=== PATIENT | female | born 1985 | race Two or more races ===

== ENCOUNTER 2024-04-18 13:33 | Emergency (ER) | payer MEDICAID, SELFPAY ==
[2024-04-18 13:50] VITALS: BP 158/96; PULSE 86; RESP 18; TEMP 36.8; O2SAT 98
--- NOTE | 2024-04-18 13:59 | XR_ITS ---
Examination: CT brain head without contrast. 2-D sagittal coronal reconstructions Date and time of exam:April 18, 2024 1411 hrs. Indications: Generalized headaches with altered mental status today CTDI: vol (mGy):47.6 DLP: (mGycm):997 Technique: Multiple CT axial sections of the brain have been obtained, 5 mm slice thickness. Contrast has not been administered. 2-D sagittal, coronal reconstructions have been obtained Low dose protocols were performed. One or more of the following dose reduction techniques were used; automated exposure control, adjustment of the mA and/or KV according to patient size, use of iterative reconstruction technique. Findings: No significant ventricular enlargement. Axial image 33 show subtle low density in the left temporal lobe Intra-axial or extra-axial hemorrhage density is not seen. No mass effect or midline shift Basal cisterns are not remarkable. Fourth ventricle is midline. Cranial vault intact. Impression: Negative for acute hemorrhage, mass effect or midline shift Axial image 33 shows subtle low density in the left temporal lobe, consider early acute infarct Consider short-term follow-up CT brain scan or MRI of brain as clinically warranted
--- NOTE | 2024-04-18 13:59 | PD.EDRME ---
Rapid Medical Screening Exam RME Arrival date/time: 04/18/24 13:33 38-year-old female presents to the emergency department complains of headache and confusion ongoing for last couple of days Chief Complaint: Headache Vital signs: Vital Signs Temperature 98.3 F 04/18/24 13:50 Pulse Rate 86 04/18/24 13:50 Respiratory Rate 18 04/18/24 13:50 Blood Pressure 158/96 H 04/18/24 13:50 Pulse Oximetry (%) 98 04/18/24 13:50 Oxygen Delivery Method Room Air 04/18/24 13:50
[2024-04-18 14:17] LABS: Collection Type, Urine Clean Catch
[2024-04-18 14:22] LABS: Bilirubin,Urine Negative (Negative); Blood,Urine 1+ (Negative); Clarity,Urine Clear (Clear/Hazy); Color,Urine Lt-Yellow (Lt Yel-Yel); Culture Indicated,Urine Not Indicated; Glucose, Urine Negative (Negative); Ketones,Urine Negative (Negative); Leukocyte Esterase,Urine Negative (Negative); Nitrite,Urine Negative (Negative); PH,Urine 6.5 (5.0-7.0); Protein,Urine Negative (Neg - Trace); RBC,Urine 2 /hpf (0-3); Squamous Epithelial Cell,Urine 3 /hpf (0-5); Urobilinogen,Urine Negative mg/dL (0.0-1.0); WBC,Urine < 1 /hpf (0-5)
[2024-04-18 14:26] LABS: HCG Qualitative,Urine Negative
[2024-04-18 14:40] LABS: Amphetamine/Methamp Scrn,U Negative (Negative); Barbiturate Screen,Urine Negative (Negative); Benzodiazepines Screen,Urine Negative (Negative); Benzoylecgonine Screen, Ur Negative (Negative); Fentanyl Screen,Urine Negative (Negative); Opiate Screen,Urine Negative (Negative); THC Screen,Urine Negative (Negative)
[2024-04-18 14:48] LABS: Basophils # (Auto) 0.1 Thou/mm3 (0.0-0.2); Basophils % (Auto) 0 % (0-2.5); Eosinophils # (Auto) 0.1 Thou/mm3 (0.0-0.5); Eosinophils % (Auto) 1 % (0-10); Hematocrit 38.7 % (36.0-46.0); Hemoglobin 12.6 g/dL (12.0-16.0); Immature Granulocytes % (Auto) 0 % (0-0); Immature Granulocytes Auto 0.05 Thou/mm3 (0.00-0.00); Lymphocytes # (Auto) 2.4 Thou/mm3 (1.0-4.8); Lymphocytes % (Auto) 16 % (10-50); Mean Corpuscular HGB Conc 32.6 g/dl (31.0-37.0); Mean Corpuscular Hemoglobin 28.1 pg (25.0-35.0); Mean Corpuscular Volume 86 fL (80-100); Monocytes # (Auto) 0.8 Thou/mm3 (0.0-0.8); Monocytes % (Auto) 5 % (0-12); Neutrophils # (Auto) 11.5 Thou/mm3 (1.8-7.7); Neutrophils % (Auto) 77 % (37-80); Nucleated Red Blood Cell % 0 /100 WBC (0); Platelet Count 422 Thou/mm3 (140-440); RDW Standard Deviation 42.7 fL (36.4-46.3); Red Blood Count 4.49 Miln/mm3 (4.00-5.20); White Blood Count 14.9 Thou/mm3 (3.6-11.0)
[2024-04-18 15:05] LABS: Alanine Aminotransferase 14 U/L (10-49); Albumin, Serum 4.5 gm/dL (3.5-5.0); Albumin/Globulin Ratio 1.5 (1.2-2.2); Alkaline Phosphatase 104 U/L (46-116); Anion Gap 8 (7-16); Aspartate Amino Transferase 14 U/L (0-34); BUN/Creatinine Ratio 12 Ratio (12-20); Bilirubin,Total 0.2 mg/dL (0.3-1.2); Blood Urea Nitrogen 7 mg/dL (9-23); Calcium 9.7 mg/dL (8.3-10.6); Calcium (Corrected) 9.7 mg/dL (8.5-10.1); Carbon Dioxide 28.7 mMol/L (20.0-31.0); Chloride 99 mMol/L (98-107); Creatinine (Component) 0.6 mg/dL (0.6-1.3); Globulin 3.1 gm/dL (2.3-3.5); Glucose 88 mg/dL (74-106); Osmolality,Calculated 268 (275-295); Potassium 3.3 mMol/L (3.4-5.1); Sodium 136 mMol/L (136-145); Total Protein 7.6 gm/dL (5.7-8.2); eGFR > 60 See Note
--- NOTE | 2024-04-18 15:31 | EDNOTE_ITS ---
<Statement entered by Batsheva Sears MD - 04/18/24 16:21> As co-signing physician, I was present and available for consult prn. I concur with the plan and care as documented by the midlevel provider. ED General RME/HPI General Chief complaint: Headache Stated complaint: HEADACHE, CAN'T CONCENTRATE, FACE FEELS SWOLLEN Time Seen by Provider: 04/18/24 15:22 Arrival date/time: 04/18/24 13:33 CC: Headache HPI ongoing for the past 2 days not relieved with typical OTC medications including ibuprofen Tylenol. The patient denies any blurred vision seeing spots nausea vomiting or diarrhea. RME / HPI RME / HPI narrative: 04/18/24 13:33 38-year-old female presents to the emergency department complains of headache and confusion ongoing for last couple of days Related Data Previous Rx's ?Medication ?Instructions ?Recorded naproxen 500 mg tablet (Naprosyn) 500 mg PO BID #30 tabs 05/17/22 lfqfyhb-kpiurmhqxtygd-dxqvzgad 250 1 tab PO Q6H PRN headache #20 tabs 07/02/22 mg-250 mg-65 mg tablet (Excedrin Migraine) cyclobenzaprine 10 mg tablet 10 mg PO HS #14 tabs 04/18/24 meloxicam 7.5 mg tablet 7.5 mg PO QDAY #10 tabs 04/18/24 Allergies Allergy/AdvReac Type Severity Reaction Status Date / Time No Known Allergies Allergy Verified 12/21/23 13:48 Review of Systems Review of Systems Narrative Review of Systems: GEN: No fever, no chills, no weight loss EYES: No discharge, no visual changes, no pain HEENT: No ear pain, no congestion, no sore throat PULM: No shortness of breath, no cough, no congestion CV: No chest pain, no dyspnea on exertion, no palpitations GI: No nausea, no vomiting, no diarrhea, no pain, no constipation : No frequency, no urgency, no dysuria MUSC/SKEL: No joint pain, no back pain SKIN: No rash PSYCH: No hallucinations, no depression HEME/LYMPH: No easy bleeding or bruising tendencies NEURO: No weakness, no headache Past Medical History Social History SMOKING STATUS: Never smoker ED Exam Narrative Physical exam: [General: Obese not in in any acute distress Head normocephalic tenderness to palpation of the base of the skull and in the cervical paraspinal muscles. HEENT: Eyes: Pupils are PERRLA EOMs are intact pupils at 4 mm and reactive, nose no rhinorrhea mouth pink moist membranes uvula is midline, swallow symmetrical. All other subsystems of HEENT are within acceptable limits Neck is supple, no nuchal rigidity, full range of motion flexion-extension and retained chin, mild cervical paraspinal tenderness with palpation. Chest equal chest rise nontender to palpation Respiratory: Clear to auscultation no wheezes crackles or rubs CV: Rate rhythm is regular no murmurs rubs or clicks Abdomen is distended secondary to body habitus soft nontender no masses positive bowel sounds all 4 quadrants Back: No CVA tenderness no spinous process tenderness from cervical spine thoracic and lumbar spine Skin: Intact no petechiae rash induration ulceration or crepitus Extremities: Moving all extremity against resistance cap refill less than 2 seconds neurosensory intact Neuro: Awake alert oriented x3 Glascow coma 15 no focal deficits] Course Quality Measures none Orders Category Date Time Status CT head/brain wo con Stat Exams 04/18/24 13:59 Taken CBC Stat Lab 04/18/24 14:25 Completed Comprehensive Metabolic Panel Stat Lab 04/18/24 14:25 Completed Drug Screen,Urine Stat Lab 04/18/24 14:04 Completed HCG Qualitative,Urine Stat Lab 04/18/24 14:04 Completed UA, C/S IF [Urinalysis, C/S if Indicated] Stat Lab 04/18/24 14:04 Completed Vital Signs Vital signs: Vital Signs Temperature 98.3 F 04/18/24 13:50 Pulse Rate 86 04/18/24 13:50 Respiratory Rate 18 04/18/24 13:50 Blood Pressure 158/96 H 04/18/24 13:50 Pulse Oximetry (%) 98 04/18/24 13:50 Oxygen Delivery Method Room Air 04/18/24 13:50 [facility] Patient data External records reviewed:: [facility] previous records Clinical information provided by:: patient Social determinants that could affect healthcare access:: none Patient has the following chronic illnesses:: Obesity How is presenting disease/condition affected by chronic disease/condition?: e xacerbated by Evaluation data The following diagnostics were reviewed and interpreted by me:: lab results and radiology exam(s) Lab and/or radiology exams considered but not ordered:: CT head is interpreted by me read by radiology as negative for any acute finding CBC shows a mild leukocytosis, no anemia thrombocytopenia CMP shows no acute electrolyte imbalances renal impairment transaminitis or T. bili elevation Urine is negative for any acute finding Interpretation Summary: Upon discussion with the patient the findings the patient continue asked multiple questions including she is losing hair and out why her face is puffy in the mornings. At this time with reproducing the pain in the base of the neck and the scalp in the occipital region I highly suspect this is a tension headache. Patient can follow-up with her primary care doctor of all the other minor findings that are not life-threatening. It was explained to the patient multiple times that in the ER we focused on life-threatening conditions and the rest can be followed up with her PCP. Patient will be given muscle relaxers and pain medication to follow-up. Medications Medications considered but not ordered:: None Medication administrations:: None Consultations Consultation(s) initiated? (list below): No Diagnosis Differential Diagnosis ED Complaint MDM: Tension headache complex migraine cluster headache Most likely diagnosis given after review of the tests above:: Tension headache Admission Indicated Admission indicated?: not indicated Explain why admission is indicated or not indicated:: Stable for outpatient follow-up Admission Request Was there a request for admission?: No Disposition Plan Disposition Plan: Discharge Discharge Attestation Discharge Attestation: The patient and all family members were given an opportunity to ask questions and understood the discharge instructions. Discharge instructions specifically effects, indications for sooner follow up or return to the emergency department, and the expected course of current diagnosis. Patient condition: Stable Medical Decision Making Differential Diagnosis Differential Diagnosis: Tension headache complex migraine cluster headache Lab Data 04/18/24 14:25 04/18/24 14:25 Labs: Lab Results 04/18/24 04/18/24 Range/Units 14:04 14:25 WBC 14.9 H (3.6-11.0) Thou/mm3 RBC 4.49 (4.00-5.20) Miln/mm3 Hgb 12.6 (12.0-16.0) g/dL Hct 38.7 (36.0-46.0) % MCV 86 (80-100) fL MCH 28.1 (25.0-35.0) pg MCHC 32.6 (31.0-37.0) g/dl RDW Std Deviation 42.7 (36.4-46.3) fL Plt Count 422 (140-440) Thou/mm3 Neut % (Auto) 77 (37-80) % Lymph % (Auto) 16 (10-50) % Barron % (Auto) 5 (0-12) % Eos % (Auto) 1 (0-10) % Baso % (Auto) 0 (0-2.5) % Neut # (Auto) 11.5 H (1.8-7.7) Thou/mm3 Lymph # (Auto) 2.4 (1.0-4.8) Thou/mm3 Barron # (Auto) 0.8 (0.0-0.8) Thou/mm3 Eos # (Auto) 0.1 (0.0-0.5) Thou/mm3 Baso # (Auto) 0.1 (0.0-0.2) Thou/mm3 Immature Gran # (Auto) 0.05 H (0.00-0.00) Thou/mm3 Absolute Nucleated RBC 0.00 (0.00-0.00) Thou/mm3 Immature Gran % 0 (0-0) % Nucleated RBC % 0 (0) /100 WBC Sodium 136 (136-145) mMol/L Potassium 3.3 L (3.4-5.1) mMol/L Chloride 99 (98-107) mMol/L Carbon Dioxide 28.7 (20.0-31.0) mMol/L Anion Gap 8 (7-16) BUN 7 L (9-23) mg/dL Creatinine 0.6 (0.6-1.3) mg/dL Estim Creat Clear Calc Not Performed. eGFR > 60 (60 - ) See Note BUN/Creatinine Ratio 12 (12-20) Ratio Glucose 88 (74-106) mg/dL Calculated Osmolality 268 L (275-295) Calcium 9.7 (8.3-10.6) mg/dL Corrected Calcium 9.7 (8.5-10.1) mg/dL Total Bilirubin 0.2 L (0.3-1.2) mg/dL AST 14 (0-34) U/L ALT 14 (10-49) U/L Alkaline Phosphatase 104 (46-116) U/L Total Protein 7.6 (5.7-8.2) gm/dL Albumin 4.5 (3.5-5.0) gm/dL Globulin 3.1 (2.3-3.5) gm/dL Albumin/Globulin Ratio 1.5 (1.2-2.2) Ur Collection Type Clean Catch Urine Color Lt-Yellow (Lt Yel-Yel) Urine Clarity Clear (Clear/Hazy) Urine pH 6.5 (5.0-7.0) Ur Specific Toney 1.010 (1.001-1.035) Urine Protein Negative (Neg - Trace) Urine Glucose (UA) Negative (Negative) Urine Ketones Negative (Negative) Urine Blood 1+ A (Negative) Urine Nitrite Negative (Negative) Urine Bilirubin Negative (Negative) Urine Urobilinogen (Auto) Negative (0.0-1.0) mg/dL Ur Leukocyte Esterase Negative (Negative) Urine RBC 2 (0-3) /hpf Urine WBC < 1 (0-5) /hpf Ur Squamous Epith Cells 3 (0-5) /hpf Urine Bacteria None (None) Ur Culture Indicated? Not Indicated Urine HCG, Qual Negative Urine Opiates Screen Negative (Negative) Urine Fentanyl Screen Negative (Negative) Ur Barbiturates Screen Negative (Negative) U Amphetamin/Meth Scrn Negative (Negative) U Benzodiazepines Scrn Negative (Negative) U Cocaine Metab Screen Negative (Negative) U Marijuana (THC) Screen Negative (Negative) Discharge Plan Plan Patient Disposition: HOME (Self Care) Patient condition on transfer: Stable Prescriptions/Referrals Prescriptions/Med Rec: New meloxicam 7.5 mg tablet 7.5 mg PO QDAY Qty: 10 0RF cyclobenzaprine 10 mg tablet 10 mg PO HS Qty: 14 0RF No Action naproxen [Naprosyn] 500 mg tablet 500 mg PO BID Qty: 30 0RF Excedrin Migraine 250-250-65 mg tablet 1 tab PO Q6H PRN (Reason: headache) Qty: 20 0RF Referrals: Darrick Villarreal [Primary Care Provider] - In 1 week Problem List Clinical Impression: Tension headache Patient/Caregiver Discharge Instructions Education Materials: ED Headache, Tension Additional Instructions: Take the medication as prescribed if there is worsening of symptoms follow-up with your primary care provider return the emergency room for reevaluation. Print Language: Welsh Stand Alone Forms: Dinah Award Info., Patient Portal Info Letter, Work/School Release PA/GLYCERIN SUPERVISOR Supervising Physician PA/GLYCERIN SUPERVISOR Supervising Physician: Marcio Gutierrez ENP
[2024-04-18] MEDS: KETOROLAC INJ 60 MG/2 ML VIAL 30 MG IM (15:49)
== END 2024-04-18 15:55 | disposition home or self-care (01) ==
PROVIDERS: Nurse Practitioner Primary Care; Emergency Provider Emergency Medicine; PCP Physician Assistant
DX: G44.209 Tension-type headache, unspecified, not intractable (principal)
CPT/HCPCS: 36415; 70450; 80053; 80307; 81001; 81025; 85025; 96372; 99284; J1885

== ENCOUNTER → 2024-05-21 | Outpatient (CLI) | payer MEDICAID, SELFPAY ==
--- NOTE | 2024-05-21 10:00 | XR_ITS ---
Examination: Pelvic ultrasound, transabdominal, complete Technique: Transabdominal ultrasound of the pelvis performed using grayscale imaging Date and time of exam: May 21, 2024 1016 hours INDICATIONS: Irregular heavy menses 3 months FINDINGS: Uterus 12.9 x 3.7 x 2.8 cm Mild fluid in the lower uterine segment Endometrial stripe 0.4 cm No uterine mass or intrauterine gestation Right ovary 3.9 x 2.1 x 3.2 cm arterial flow, 23 x 24 mm cyst Left ovary 3.5 x 1.5 x 2.6 cm arterial flow, 10 mm follicular cyst IMPRESSION: No uterine mass or intrauterine gestation Right ovarian simple cyst 23 x 20 x 24 mm
--- NOTE | 2024-05-21 10:00 | XR_ITS ---
Examination: Transvaginal ultrasound of the pelvis, complete Technique: Transvaginal sonographic images pelvis performed using magaña scale imaging Exam date and time: May 21, 2024 1035 hours INDICATIONS: Irregular heavy menses 3 months FINDINGS: Uterus 10.4 x 4.0 x 4.7 cm No uterine mass or intrauterine gestation Endometrial stripe 11 mm Right ovary 3.4 x 2.3 x 2.9 cm arterial flow, 18 x 17 mm cyst Left ovary obscured by bowel gas IMPRESSION: No uterine mass or intrauterine gestation.
== END | disposition home or self-care (01) ==
PROVIDERS: PCP Physician Assistant; Referring Provider Physician Assistant; Visit Provider Physician Assistant
DX: N83.291 Other ovarian cyst, right side (principal)
CPT/HCPCS: 76830; 76856

== ENCOUNTER 2024-05-27 12:05 | Inpatient (IN) | payer MEDICAID, SELFPAY ==
[2024-05-27] VITALS (14 sets, daily range): BP systolic 90–122; BP diastolic 48–89; PULSE 97–155; RESP 16–28; TEMP 36.2–38.9; O2SAT 2–100; BMI 35.4; BMI 38.5
--- NOTE | 2024-05-27 12:21 | XR_ITS ---
Examination: AP chest single view Technique one AP portable semiupright chest single view Exam date and time: May 27, 2024 1231 hrs. Indications: Chest pain coughing beginning today. Findings: Early bibasilar pneumonia Mild enlargement cardiac contour Reduced inspiratory effort Impression: Early bibasilar pneumonia, more prominent left base
--- NOTE | 2024-05-27 12:21 | EKG_ITS ---
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
--- NOTE | 2024-05-27 12:26 | PD.EDADULT ---
ED General RME/HPI General Chief complaint: Abdominal Pain Stated complaint: UPPER ABD PAIN Time Seen by Provider: 05/27/24 12:14 Arrival date/time: 05/27/24 12:05 RME / HPI RME / HPI narrative: 38-year-old female with a history of section who presents with fevers and epigastric pain since mid last night. She reports being of her normal state of health where in fact she had a large meal last night which she was able to finish. This progressed to significant epigastric pain, some nausea and vomiting. She had an episode of loose stool this morning. No other member of her family had the same meal last night. She is somewhat lethargic and does not offer a full or complete history. EMS notes that family members and activated them because they had a difficult time getting her off of the floor. On arrival with support she was able to ambulate herself to the stretcher. Related Data Previous Rx's ?Medication ?Instructions ?Recorded naproxen 500 mg tablet (Naprosyn) 500 mg PO BID #30 tabs 05/17/22 [id number] 250 1 tab PO Q6H PRN headache #20 tabs 07/02/22 mg-250 mg-65 mg tablet (Excedrin Migraine) cyclobenzaprine 10 mg tablet 10 mg PO HS #14 tabs 04/18/24 meloxicam 7.5 mg tablet 7.5 mg PO QDAY #10 tabs 04/18/24 Allergies Allergy/AdvReac Type Severity Reaction Status Date / Time No Known Allergies Allergy Verified 12/21/23 13:48 Review of Systems Review of Systems Systems Reviewed: All systems reviewed, normal except as documented ED Exam Narrative Physical exam: GENERAL APPEARANCE: AxOx4, lethargic, quite ill-appearing, in moderate distress HEENT: NC, AT. MMM. EOMI, clear conjunctiva, oropharynx clear. NECK: Supple without lymphadenopathy. No stiffness or restricted ROM. HEART: Normal rate and regular rhythm, normal S1/S1, no m/r/g LUNGS: CTAB, moving air well. No crackles or wheezes are heard. ABDOMEN: Soft, diffuse tenderness, nondistended with good bowel sounds heard. BACK: No midline C/T/L spine pain or deformity, No CVAT, no obvious deformity. EXTREMITIES: Without cyanosis, clubbing or edema. MUSCULOSKELETAL: FROM of all major joints, no chest tenderness NEUROLOGICAL: Grossly nonfocal. Alert and oriented, moving all 4 extremities. CN not formally tested but appear grossly intact. Observed to ambulate with normal gait. Skin: Warm and dry without any rash. Course Quality Measures Current suspected stage: septic shock (LA >4 and/or hypotension) Sepsis reassessment completed at (date): 05/27/24 Sepsis reassessment completed at (time): 15:50 Possible source: GI tract/intra-abdominal Blood cultures ordered: yes Antibiotic ordered: Yes Pertinent labs: 05/27/24 05/27/24 12:37 16:22 Lactic Acid 3.1 H mMol/L 4.3 H* mMol/L (0.4-2.0) (0.4-2.0) Procalcitonin 7.87 H ng/ml (0.0-0.49) sepsis and none Orders Category Date Time Status CT Screening NOW Care 05/27/24 13:42 Active EKG (ED ONLY) *Do not use* NOW Care 05/27/24 12:21 Completed Consult to General Surgery Stat Cons 05/27/24 16:[address] abd pel w con SEPSIS TERESA Stat Exams 05/27/24 13:42 Completed EKG (ED Only) Stat Exams 05/27/24 12:21 Draft US gall bladder Stat Exams 05/27/24 13:42 Completed XR chest 1V Stat Exams 05/27/24 12:21 Completed Blood Culture (Lab) Stat Lab 05/27/24 12:44 Received CBC Stat Lab 05/27/24 12:37 Completed CMP [Comprehensive Metabolic Panel] Stat Lab 05/27/24 12:37 Completed HCG Qualitative,Urine Stat Lab 05/27/24 14:12 Completed Lactate (Lactic Acid) Stat Lab 05/27/24 12:37 Completed Lactic Acid, 3 HR Stat Lab 05/27/24 16:22 Completed Lipase Stat Lab 05/27/24 12:37 Completed Partial Thromboplastin Time Stat Lab 05/27/24 12:37 Completed Procalcitonin Stat Lab 05/27/24 12:37 Completed Prothrombin Time with INR Stat Lab 05/27/24 12:37 Completed Troponin I Stat Lab 05/27/24 12:37 Completed Urinalysis Stat Lab 05/27/24 14:12 Completed Acetaminophen Tab [Tylenol Tab] Med 05/27/24 13:43 Discontinued 650 mg PO X1 ONE Piper/Tazo 3.375 gm [Zosyn] Med 05/27/24 13:42 Discontinued 3.375 gm in 50 ml IV X1 Sodium Chloride 0.9% 1000 ml [Ns] 1,000 ml Med 05/27/24 12:20 Discontinued IV 999 mls/hr Sodium Chloride 0.9% 1000 ml [Ns] 1,000 ml Med 05/27/24 12:22 Discontinued IV 999 mls/hr Sodium Chloride 0.9% 1000 ml [Ns] 1,000 ml Med 05/27/24 16:27 Discontinued IV 999 mls/hr Reevaluation(s) Reevaluation #1: Patient continues to be tachycardic with normal blood pressure despite 2 L of fluids, will give 1/3 L of normal saline. Time: 16:30 Vital Signs Vital signs: Vital Signs Temperature 102.1 F H 05/27/24 12:11 Pulse Rate 145 H 05/27/24 12:11 Respiratory Rate 28 H 05/27/24 12:11 Blood Pressure 111/79 05/27/24 12:11 Pulse Oximetry (%) 100 05/27/24 12:11 Oxygen Delivery Method Nasal Cannula 05/27/24 12:11 Oxygen Flow Rate 2 05/27/24 12:11 SpO2 100% on 2 L nasal cannula, patient is not a MDM Patient data External records reviewed:: [facility] [place] previous records Clinical information provided by:: patient Social determinants that could affect healthcare access:: none Patient has the following chronic illnesses:: None How is presenting disease/condition affected by chronic disease/condition?: no chronic disease Evaluation data The following diagnostics were reviewed and interpreted by me:: lab results, radiology exam(s) and EKG tracing(s) Lab and/or radiology exams considered but not ordered:: None Interpretation Summary: As per narrative Medications Medications considered but not ordered:: None Medication administrations:: Medication Administration History Sodium Chloride (Ns) 1,000 mls @ 100 mls/hr IV .Q10H ESPERANZA Stop: 05/28/24 13:44 Discontinued Medications Acetaminophen (Acetaminophen 325 Mg Tablet) 650 mg PO X1 ONE Stop: 05/27/24 13:44 Last Admin: 05/27/24 14:41 Dose: 650 mg Documented By: XUAN Sodium Chloride (Ns) 1,000 mls @ 999 mls/hr IV .Q1H1M ONE Stop: 05/27/24 13:20 Last Infusion: 05/27/24 13:46 Dose: Infused Documented By: Admin: 05/27/24 12:45 Dose: 999 mls/hr Documented By: TM Sodium Chloride (Ns) 1,000 mls @ 999 mls/hr IV .Q1H1M ONE Stop: 05/27/24 13:22 Last Infusion: 05/27/24 13:46 Dose: Infused Documented By: Admin: 05/27/24 12:45 Dose: 999 mls/hr Documented By: TM Piperacillin/Tazobactam/Dextrose (Zosyn) 3.375 gm in 50 mls @ 100 mls/hr IV X1 ONE Stop: 05/27/24 14:11 Last Infusion: 05/27/24 15:11 Dose: Infused Documented By: Admin: 05/27/24 14:41 Dose: 100 mls/hr Documented By: TM Sodium Chloride (Ns) 1,000 mls @ 999 mls/hr IV .Q1H1M ONE Stop: 05/27/24 17:27 Last Admin: 05/27/24 16:35 Dose: 999 mls/hr Documented By: TM Above Consultations Consultation(s) initiated? (list below): No Diagnosis Differential Diagnosis ED Complaint MDM: Perforated viscus, peptic ulcer disease, pancreatitis, acute cholecystitis, Most likely diagnosis given after review of the tests above:: Severe sepsis, acute cholecystitis Admission Indicated Admission indicated?: indicated Explain why admission is indicated or not indicated:: As per narrative Admission Request Was there a request for admission?: Yes Admission Attestation Admission request attestation: Discussed case with [Dr Forbes] from surgery service regarding admission. Discussed patients ED course, exam findings, labs, and radiology results. The surgery [agrees] to accept the patient for admission. Disposition Plan Disposition Plan: Admit (To the operating room) Medical Decision Making MDM Narrative MDM Narrative: Ms. Larson presents to me by EMS quite ill contact tachycardic, febrile with diffuse abdominal pain. Although exam is not consistent with a surgical abdomen, her degree of illness is concerning for a perforated viscus. Laboratory testing was sent which is significant for a marked leukocytosis, elevated lactic acid and elevated procalcitonin concerning for a septic picture. This is consistent with a perforated viscus. Liver enzymes were within normal limits. Further testing including ultrasound and gallbladder were done to assess for the gallbladder given her predominant upper abdominal pain and CT to rule out perforation. Ultrasound and CT point a little bit more towards the gallbladder with acute cholecystitis. There is no perforation. However she continues to have a septic picture with an rising lactic acids despite IV fluids and antibiotics. Surgery was consulted with plan for the OR for exploration and likely cholecystectomy. Differential Diagnosis Differential Diagnosis: Perforated viscus, peptic ulcer disease, pancreatitis, acute cholecystitis, Lab Data 05/27/24 12:37 05/27/24 12:37 Labs: Lab Results 05/27/24 05/27/24 05/27/24 Range/Units 12:37 14:12 16:22 WBC 16.2 H (3.6-11.0) Thou/mm3 RBC 4.63 (4.00-5.20) Miln/mm3 Hgb 12.9 (12.0-16.0) g/dL Hct 39.7 (36.0-46.0) % MCV 86 (80-100) fL MCH 27.9 (25.0-35.0) pg MCHC 32.5 (31.0-37.0) g/dl RDW Std Deviation 44.4 (36.4-46.3) fL Plt Count 273 D (140-440) Thou/mm3 Neut % (Auto) 94 H (37-80) % Lymph % (Auto) 3 L (10-50) % [place] % (Auto) 2 (0-12) % Eos % (Auto) 0 (0-10) % Baso % (Auto) 0 (0-2.5) % Neut # (Auto) 15.2 H (1.8-7.7) Thou/mm3 Lymph # (Auto) 0.5 L (1.0-4.8) Thou/mm3 [place] # (Auto) 0.4 (0.0-0.8) Thou/mm3 Eos # (Auto) 0.0 (0.0-0.5) Thou/mm3 Baso # (Auto) 0.0 (0.0-0.2) Thou/mm3 Immature Gran # (Auto) 0.08 H (0.00-0.00) Thou/mm3 Absolute Nucleated RBC 0.00 (0.00-0.00) Thou/mm3 Immature Gran % 1 H (0-0) % Nucleated RBC % 0 (0) /100 WBC PT 11.1 (9.0-12.2) Seconds INR 1.0 (0.9-1.3) APTT 27.2 (22.0-36.0) Seconds Sodium 135 L (136-145) mMol/L Potassium 3.0 L (3.4-5.1) mMol/L Chloride 100 (98-107) mMol/L Carbon Dioxide 21.2 (20.0-31.0) mMol/L Anion Gap 14 (7-16) BUN 11 (9-23) mg/dL Creatinine 0.8 (0.6-1.3) mg/dL Estim Creat Clear Calc 100.9 (>60) mL/min eGFR > 60 (60 - ) See Note BUN/Creatinine Ratio 14 (12-20) Ratio Glucose 116 H (74-106) mg/dL Calculated Osmolality 270 L (275-295) Lactic Acid 3.1 H 4.3 H* (0.4-2.0) mMol/L Calcium 9.2 (8.3-10.6) mg/dL Corrected Calcium 9.2 (8.5-10.1) mg/dL Total Bilirubin 1.0 (0.3-1.2) mg/dL AST 66 H (0-34) U/L ALT 33 (10-49) U/L Alkaline Phosphatase 142 H (46-116) U/L Troponin I < 0.020 (0.0-0.045) ng/mL Total Protein 7.8 (5.7-8.2) gm/dL Albumin 4.3 (3.5-5.0) gm/dL Globulin 3.5 (2.3-3.5) gm/dL Albumin/Globulin Ratio 1.2 (1.2-2.2) Lipase 32 (12-53) U/L Procalcitonin 7.87 H (0.0-0.49) ng/ml Ur Collection Type Clean Catch Urine Color Lt-Yellow (Lt Yel-Yel) Urine Clarity Turbid A (Clear/Hazy) Urine pH 6.0 (5.0-7.0) Ur Specific [place] 1.011 (1.001-1.035) Urine Protein 1+ A (Neg - Trace) Urine Glucose (UA) Negative (Negative) Urine Ketones Trace (Negative) Urine Blood 2+ A (Negative) Urine Nitrite Negative (Negative) Urine Bilirubin Negative (Negative) Urine Urobilinogen (Auto) Negative (0.0-1.0) mg/dL Ur Leukocyte Esterase Positive (Negative) Urine RBC 11 H (0-3) /hpf Urine WBC 54 H (0-5) /hpf Ur Squamous Epith Cells 2 (0-5) /hpf Urine Bacteria Rare (None) Urine HCG, Qual Negative Critical Care Time Critical Care Time Critical Care Time: Yes Total Critical Care Time (min.): 40 Attestation: Excluding billable procedures for the rep response, analysis, management, deliberation with specialist, treatment, and documentation to vent the very possible risk of cardiovascular decompensation and/or . Discharge Plan Plan Patient Disposition: Other Care w/in Hosp ([facility]) Problem List Clinical Impression: Severe sepsis, Acute calculous cholecystitis
[2024-05-27] MEDS: SODIUM CHLORIDE 0.9% 1000 ML 1,000 ML 999 ML IV ×3 (12:45→16:35)
[2024-05-27 12:50] LABS: Lactate (Lactic Acid) 3.1 mMol/L (0.4-2.0)
--- NOTE | 2024-05-27 12:51 | PC.NURSE ---
PT ARRIVED VIA EMS FROM HOME. EMS WAS CALLED FOR EPIGASTRIC PAIN THAT BEGAN LAST NIGHT AFTER EATING OUT WITH FRIEND. PTS HAS N/V/D, LETHARGIC, AND FEVER. SEPSIS ALERT INITIATED
[2024-05-27 12:59] LABS: Basophils % (Auto) 0 % (0-2.5); Eosinophils % (Auto) 0 % (0-10); Hematocrit 39.7 % (36.0-46.0); Hemoglobin 12.9 g/dL (12.0-16.0); Immature Granulocytes % (Auto) 1 % (0-0); Immature Granulocytes Auto 0.08 Thou/mm3 (0.00-0.00); Lymphocytes # (Auto) 0.5 Thou/mm3 (1.0-4.8); Lymphocytes % (Auto) 3 % (10-50); Mean Corpuscular HGB Conc 32.5 g/dl (31.0-37.0); Mean Corpuscular Hemoglobin 27.9 pg (25.0-35.0); Mean Corpuscular Volume 86 fL (80-100); Monocytes # (Auto) 0.4 Thou/mm3 (0.0-0.8); Monocytes % (Auto) 2 % (0-12); Neutrophils # (Auto) 15.2 Thou/mm3 (1.8-7.7); Neutrophils % (Auto) 94 % (37-80); Nucleated Red Blood Cell % 0 /100 WBC (0); Platelet Count 273 Thou/mm3 (140-440); RDW Standard Deviation 44.4 fL (36.4-46.3); Red Blood Count 4.63 Miln/mm3 (4.00-5.20); White Blood Count 16.2 Thou/mm3 (3.6-11.0)
[2024-05-27 13:19] LABS: Partial Thromboplastin Time 27.2 Seconds (22.0-36.0); Prothrombin Time 11.1 Seconds (9.0-12.2)
[2024-05-27 13:26] LABS: Alanine Aminotransferase 33 U/L (10-49); Albumin, Serum 4.3 gm/dL (3.5-5.0); Albumin/Globulin Ratio 1.2 (1.2-2.2); Alkaline Phosphatase 142 U/L (46-116); Anion Gap 14 (7-16); Aspartate Amino Transferase 66 U/L (0-34); BUN/Creatinine Ratio 14 Ratio (12-20); Blood Urea Nitrogen 11 mg/dL (9-23); Calcium 9.2 mg/dL (8.3-10.6); Calcium (Corrected) 9.2 mg/dL (8.5-10.1); Carbon Dioxide 21.2 mMol/L (20.0-31.0); Chloride 100 mMol/L (98-107); Creatinine (Component) 0.8 mg/dL (0.6-1.3); Estimated Creatinine Clearance 100.9 mL/min (>60); Globulin 3.5 gm/dL (2.3-3.5); Glucose 116 mg/dL (74-106); Lipase 32 U/L (12-53); Osmolality,Calculated 270 (275-295); Procalcitonin 7.87 ng/ml (0.0-0.49); Sodium 135 mMol/L (136-145); Total Protein 7.8 gm/dL (5.7-8.2); Troponin I < 0.020 ng/mL (0.0-0.045); eGFR > 60 See Note
--- NOTE | 2024-05-27 13:42 | XR_ITS ---
Examination: Abdomen sonogram, Limited Date and time of exam: May 27, 2024 1520 hours INDICATIONS: Nausea vomiting fever abdominal pain today Technique: Real-time magaña scale transabdominal sonographic images of the upper abdomen obtained. Findings: Multiple gallstones Gallbladder wall 16 mm with edema Common bile duct 0.4 cm Pancreatic head 2.7 cm Liver 17.5 cm fatty infiltration no focal liver lesions Normal hepatopedal portal venous flow Patent IVC IMPRESSION: Acute calculous cholecystitis
--- NOTE | 2024-05-27 13:42 | XR_ITS ---
Examination: CT abdomen with intravenous contrast CT pelvis with intravenous contrast 2-D coronal reconstructions 2-D sagittal reconstructions Date and time of exam:May 27, 2024 at 1601 hours INDICATIONS: Sepsis alert, epigastric pain today. CTDI: vol (mGy) 14.5 DLP: (mGycm) 786 Technique: Multiple axial sections of the abdomen and pelvis have been obtained. 64 slice high-resolution scanner used. 3 mm axial sections have been obtained, post intravenous injection of 60 cc of Isovue 370 intravenous 2-D sagittal, coronal reconstructions obtained. Low dose protocols were performed. One or more of the following dose reduction techniques were used; automated exposure control, adjustment of the mA and/or KV according to patient size, use of iterative reconstruction technique. Findings: Atelectasis versus mild pneumonia right base No focal liver or splenic lesions Marked edema and thickening of the gallbladder wall, possible gallstones No renal or ureteral calculi Moderate colonic ileus No pericecal inflammatory change No diverticulitis Urinary bladder intact No abdominal pelvic abscess IMPRESSION: Atelectasis versus mild pneumonia right base Acute cholecystitis
[2024-05-27 14:25] LABS: Collection Type, Urine Clean Catch
[2024-05-27] MEDS: ACETAMINOPHEN 325 MG TABLET 650 MG PO (14:41)
[2024-05-27] MEDS: PIPER/TAZO 3.375 GM 3.375 GM/50 ML BAG IV (14:41)
[2024-05-27 14:57] LABS: Bacteria,Urine Rare; Bilirubin,Urine Negative (Negative); Blood,Urine 2+ (Negative); Clarity,Urine Turbid (Clear/Hazy); Color,Urine Lt-Yellow (Lt Yel-Yel); Glucose, Urine Negative (Negative); Ketones,Urine Trace (Negative); Leukocyte Esterase,Urine Positive (Negative); Nitrite,Urine Negative (Negative); Protein,Urine 1+ (Neg - Trace); RBC,Urine 11 /hpf (0-3); Specific Gravity,Urine 1.011 (1.001-1.035); Squamous Epithelial Cell,Urine 2 /hpf (0-5); Urobilinogen,Urine Negative mg/dL (0.0-1.0); WBC,Urine 54 /hpf (0-5)
[2024-05-27 14:59] LABS: HCG Qualitative,Urine Negative
[2024-05-27 15:55] LABS: Reflex Lactate? Y
[2024-05-27 16:46] LABS: Lactic Acid, 3 HR 4.3 mMol/L (0.4-2.0)
[2024-05-27] MEDS: SODIUM CHLORIDE 0.9% 1000 ML 1,000 ML 100 ML IV (18:00)
--- NOTE | 2024-05-27 18:37 | PD.SURHP ---
HPI Date of Admission 05/27/24 17:44 Chief Complaint Chief Complaint: Patient is admitted with a diagnosis of acute cholecystitis with stones HPI History of present illness revealed the patient was in her usual health until last night when she developed a severe pain over the abdomen mostly in the upper abdomen then radiating elsewhere. She has had some vomiting and had couple of loose stools. She denies having any gallbladder stones in the past. She denies fever or chills. The pain was so severe that when she presented in the emergency room she was tachycardic with a heart rate around 150. Emergency room doctors resuscitated her with IV fluids but still she was tachycardic around 120s and has a lactic acid of around 4. Workup revealed acute calculus cholecystitis with considerable edema over the gallbladder wall and therefore surgical consultation was obtained. Patient denies having any such pain in the past. Her past surgery consist of 3 sections in [place]. Past Medical History Past Medical History CARDIAC: Negative Cardiac Disorders RESPIRATORY: Negative Asthma GENITOURINARY: Negative Renal Disease ENDOCRINE: Negative Diabetes Mellitus Type 2 HEMATOLOGIC: Negative Sickle Cell Disease Social History SMOKING STATUS: Never smoker Meds Home Medications and Allergies Allergies Allergy/AdvReac Type Severity Reaction Status Date / Time No Known Allergies Allergy Verified 12/21/23 13:48 Exam Vital Signs Temp Pulse Resp BP Pulse Ox O2 Del Method O2 Flow Rate 100.2 F 133 H 16 117/89 H 99 Room Air 2 05/27/24 16:29 05/27/24 14:44 05/27/24 14:44 05/27/24 14:44 05/27/24 14:44 05/27/24 14:44 05/27/24 12:11 Narrative Exam Physical examination revealed a slightly obese female who is 5 feet 3 inches tall weighing 200 pounds with BMI of 35.4. Her vital signs revealed temperature of 100.2 pulse rate of 133 respiration of 16 BP was 117/89 Constitutional Constitutional: severe distress Routine Cardiovascular Exam Comments: Tachycardia with a heart rate of around 1 20-1 30 Routine Abdominal Exam Comments: Diffuse abdominal pain but more so in the right upper quadrant. Patient has diminished bowel sounds. Surgical scar in the lower abdomen from C-sections Routine Rectal Exam Comments: Deferred because of the pain Routine Exam Comments: Deferred Routine Extremities Exam Comments: Within normal limits Results Results: Laboratory Laboratory Narrative: Laboratory results show WBC of 16,000 with a shift to the left liver enzymes are not elevated. Her lactic acid is elevated to 4.3. Results: Imaging Imaging narrative: Ultrasound of the gallbladder showed acute calculus cholecystitis with considerable edema around the gallbladder. CT scan of the abdomen showed no abnormality other than gallbladder with large amounts of fluid collection Assessment & Plan Additional Assessment Additional comments: Impression: Acute calculus cholecystitis Obesity Plan Plan: I strongly feel that the patient's presentation is rather too acute for a simple cholecystitis. However I cannot find out any other source of infection or sepsis. It is not possible for her to get into sepsis with the gallbladder and 1 day unless she has cholangitis which is not proven here because of the normal bilirubin. She has a diffuse tenderness suggesting that she might of had a perforation in the abdomen. Since no other abnormalities found out I advised her to have laparoscopic or open cholecystectomy. I told the family that she may or may not get better and may require further workup after the surgery. The procedure of laparoscopic surgery was explained to her in detail and was mentioned that she may end up with exploratory laparotomy or open cholecystectomy. She is agreeable. She has been started on Zosyn on more than 2 L of fluid has been given and she will be taken to the OR tonight. Quality Measures Quality Measures sepsis Current suspected stage: septic shock (LA >4 and/or hypotension) Sepsis reassessment completed at (date): 05/27/24 Sepsis reassessment completed at (time): 17:00 Possible source: GI tract/intra-abdominal Blood cultures ordered: yes Antibiotic ordered: Yes and none
--- NOTE | 2024-05-27 18:47 | PC.NURSE ---
1800 WITNESSED CONSENT W/PROVIDER AND MOTOR COACH SUPERVISOR WAS USED NAME: Nikita #[id number]
--- NOTE | 2024-05-27 20:19 | PD.SUROPNT ---
Date of Procedure 05/27/24 Pre Op Diagnosis Acute calculus cholecystitis Post Op Diagnosis Same with extensive inflammation and edema I think Procedure Laparoscopic cholecystectomy Findings Patient is found to have extensive inflammation of the gallbladder with edema surrounding the entire gallbladder with multiple stones Procedure Description After endotracheal anesthesia was given the patient was placed in supine position and the abdomen was prepped with chloroprep solution and draped in a sterile manner. After time out was performed I injected a few cc of of half percent Marcaine with epinephrine below the umbilicus and I made an incision for about 3 cm in length. The fascia was cleaned and Veress needle was inserted to create a pneumoperitoneum up to 15 mmHg. Then introduced a 12 mm trocar and a 10 mm camera through the fascia and I inspected the intra-abdominal organs as well as the gallbladder and the liver. Patient had considerable adhesions because of the previous sections and there were a fair amount of omental adhesions underneath the umbilical port. Therefore I placed a 5 mm port in the epigastric region then looked down and then used a long 12 mm trocar to come about the adhesions and then the procedure was continued. Another 5 mm trocar was inserted in the epigastric region under direct vision after injecting some local anesthesia. At this time the patient was kept in reverse Trendelenburg position with the left lateral tilt. The third 5 mm trocar was inserted over the mid axillary line under direct vision and a Gage and Gecarol grasper was used to hold the fundus of the gallbladder. The gallbladder was extremely distended and therefore it was decompressed and the retraction was carried out by the anesthetic assistant moving the fundus of the gallbladder towards the right shoulder of the patient to create enough traction. I placed a another 5 mm trocar in the midaxillary line just lateral to the rectus muscle under direct vision. I used a fenestrated grasper to retract the neck of the gallbladder laterally towards the patient's right hip. The Calot's triangle was exposed and I achieved the critical view of safety as follows: I dissected out the fatty tissue from the hepatocystic triangle and cleared this area. I also dissected inferior and posterior to the gallbladder to identify the cystic duct and the gallbladder wall. Then superiorly I dissected along the cystic plate up to lower one third third of the gallbladder to lift the gallbladder from the liver. At this time I confirmed that only 2 structures entering the gallbladder were cystic artery and the cystic duct. The common duct was seen distally but no dissection was carried out around the duct. I did not see any need for operative cholangiogram in this patient. The cystic duct was clipped doubly and then divided and cystic artery was similarly dealt with. Then the gallbladder was removed from the liver bed using Harmonic holley to control the small blood vessels as the dissection proceeded. Then the gallbladder was from the liver bed completely and delivered through the umbilical port using an Endopouch. The umbilical port adhesion were once again inspected to make sure there is no bowel attached to this adhesions. Using harmonic holley I released some adhesions so that there will not be any problem pulling out the gallbladder through the trocar. The liver bed was coagulated with cautery to obtain satisfactory hemostasis. The trocars were pulled out from the abdominal cavity and the fascia at the umbilical incision was closed with interrupted 0 Ethibond. Subcutaneous tissues was closed with 3-0 chromic and injected a few cc of half percent Marcaine with epinephrine and the skin was closed with interrupted 4-0 Monocryl subcuticular stitches at all the trocar sites. Dressing was applied with 2 x 2 and Tegaderm. Patient tolerated the procedure well and returned to recovery room in stable condition. Anesthesia GETA Pathology / specimen Other IVF Infused 1,100 Estimated Blood Loss 50 Condition Stable Disposition PACU Surgeon Flavia Forbes MD Surgical Staff Operation Date: 05/27/24 18:45 Case Staff Anesthesiologist: Aryan Rubio RNsingle corner cutter: Cass Fitch
--- NOTE | 2024-05-27 20:24 | SUR.PHASEI ---
received pt and report from INO Bermudez and Dr. Rubio. Pt resting with eyes closed but arousable to voice. dressing to abd x4 CDI. IV to L AC, intact, no s/s of infiltration or redness to site. BP noted to be low, Dr Rubio at bedside, made aware. will continue to monitor
--- NOTE | 2024-05-27 20:37 | SUR.PHASEI ---
pt awake, A&Ox4, no distress noted, BP improved. will continue to monitor
[2024-05-27 20:41] LABS: Lactate (Lactic Acid) 3.4 mMol/L (0.4-2.0)
--- NOTE | 2024-05-27 20:48 | SUR.PHASEI ---
pt recovering well, vss, bp improved, pt denies any pain.report given to INO Gallardo. will transfer when appropriate.
[2024-05-27] MEDS: MORPHINE SULF INJ 10 MG/ML VIAL 5 MG IVP (22:29)
[2024-05-27] MEDS: SODIUM CHLORIDE 0.9% 1000 ML 1,000 ML 150 ML IV (22:30)
[2024-05-27] MEDS: PIPER/TAZO INJ 3.375 GM in SODIUM CHLORIDE 0.9% (P) 100 ML IV (22:30)
[2024-05-27 23:39] LABS: Reflex Lactate? Y
[2024-05-28] VITALS (8 sets, daily range): BP systolic 94–140; BP diastolic 60–91; PULSE 77–106; RESP 16–18; TEMP 36.2–36.7; O2SAT 93–98
[2024-05-28 00:15] LABS: Lactic Acid, 3 HR 1.2 mMol/L (0.4-2.0)
[2024-05-28] MEDS: KETOROLAC INJ 30 MG/ML VIAL IVP ×2 (02:39→21:11)
[2024-05-28 05:47] LABS: Basophils % (Auto) 0 % (0-2.5); Eosinophils % (Auto) 0 % (0-10); Hematocrit 31.5 % (36.0-46.0); Hemoglobin 10.3 g/dL (12.0-16.0); Immature Granulocytes % (Auto) 2 % (0-0); Immature Granulocytes Auto 0.35 Thou/mm3 (0.00-0.00); Lymphocytes # (Auto) 0.5 Thou/mm3 (1.0-4.8); Lymphocytes % (Auto) 2 % (10-50); Mean Corpuscular HGB Conc 32.7 g/dl (31.0-37.0); Mean Corpuscular Hemoglobin 28.2 pg (25.0-35.0); Mean Corpuscular Volume 86 fL (80-100); Monocytes # (Auto) 0.3 Thou/mm3 (0.0-0.8); Monocytes % (Auto) 1 % (0-12); Neutrophils # (Auto) 22.2 Thou/mm3 (1.8-7.7); Neutrophils % (Auto) 95 % (37-80); Nucleated Red Blood Cell % 0 /100 WBC (0); Platelet Count 228 Thou/mm3 (140-440); Red Blood Count 3.65 Miln/mm3 (4.00-5.20); White Blood Count 23.4 Thou/mm3 (3.6-11.0)
[2024-05-28] MEDS: PIPER/TAZO INJ 3.375 GM in SODIUM CHLORIDE 0.9% (P) 100 ML IV (05:47)
[2024-05-28] MEDS: SODIUM CHLORIDE 0.9% 1000 ML 1,000 ML 150 ML IV ×2 (05:48→12:35)
[2024-05-28 06:17] LABS: Alanine Aminotransferase 35 U/L (10-49); Anion Gap 8 (7-16); Aspartate Amino Transferase 53 U/L (0-34); Bilirubin,Direct 0.3 mg/dL (0.0-0.3); Bilirubin,Total 0.7 mg/dL (0.3-1.2); Carbon Dioxide 21.5 mMol/L (20.0-31.0); Chloride 113 mMol/L (98-107); Potassium 3.9 mMol/L (3.4-5.1); Sodium 142 mMol/L (136-145); Total Protein 5.9 gm/dL (5.7-8.2)
[2024-05-28 06:18] LABS: Albumin, Serum 3.4 gm/dL (3.5-5.0); Alkaline Phosphatase 91 U/L (46-116)
[2024-05-28] MEDS: MORPHINE SULF INJ 10 MG/ML VIAL 5 MG IVP ×2 (09:41→15:55)
--- NOTE | 2024-05-28 11:53 | PC.NURSE ---
Pt.walking aroungd the su , tolerating the walk and made a total of 2 rounds will keep monitoring the pt.
[2024-05-28] MEDS: PIPER/TAZO 3.375 GM 50 ML IV ×2 (13:49→21:05)
[2024-05-28] MEDS: ACETAMINOPHEN 325 MG TABLET 650 MG PO (14:10)
--- NOTE | 2024-05-28 14:37 | PC.NURSE ---
pt. has NS running already rate titrated to new order of 100 ml/hr
--- NOTE | 2024-05-28 15:38 | PD.SURPROG ---
Documentation for date of: 05/28/24 Subjective Subjective Brief History: History of present illness revealed the patient was in her usual health until last night when she developed a severe pain over the abdomen mostly in the upper abdomen then radiating elsewhere. She has had some vomiting and had couple of loose stools. She denies having any gallbladder stones in the past. She denies fever or chills. The pain was so severe that when she presented in the emergency room she was tachycardic with a heart rate around 150. Emergency room doctors resuscitated her with IV fluids but still she was tachycardic around 120s and has a lactic acid of around 4. Workup revealed acute calculus cholecystitis with considerable edema over the gallbladder wall and therefore surgical consultation was obtained. Patient denies having any such pain in the past. Her past surgery consist of 3 sections in [place]. Narrative: Patient is feeling slightly better after the surgery. Exam Vital Signs Temp Pulse Resp BP Pulse Ox O2 Del Method O2 Flow Rate 97.1 F 92 18 104/65 96 Room Air 1 05/28/24 12:00 05/28/24 12:00 05/28/24 12:05/28/24 12:00 05/28/24 12:00 05/28/24 04:00 05/28/24 09:35 Her vital signs are normal other than tachycardia Routine Abdominal Exam Comments: Abdominal examination is negative Results Results: Laboratory Laboratory Narrative: Laboratory workup showed WBC of 23,000 probably due to surgical stress. Liver enzymes are slightly elevated Assessment & Plan Assessment Additional comments: Impression: Stable postoperative course Plan Plan: Because of the extensive acute inflammation of the gallbladder and persistent leukocytosis patient will require IV antibiotic therapy for at least they are to therefore she will be kept as an inpatient Procedures Procedures Laparoscopic cholecystectomy
[2024-05-28] MEDS: SODIUM CHLORIDE 0.9% 1000 ML 1,000 ML 100 ML IV (22:21)
[2024-05-29] VITALS: BP 123/75; PULSE 101; RESP 18; TEMP 36.4; O2SAT 93
[2024-05-29 04:00] VITALS: BP 127/74; PULSE 91; RESP 17; TEMP 36.2; O2SAT 97
[2024-05-29 06:15] LABS: Basophils % (Auto) 0 % (0-2.5); Eosinophils % (Auto) 0 % (0-10); Hematocrit 26.7 % (36.0-46.0); Immature Granulocytes % (Auto) 1 % (0-0); Immature Granulocytes Auto 0.16 Thou/mm3 (0.00-0.00); Lymphocytes # (Auto) 1.1 Thou/mm3 (1.0-4.8); Lymphocytes % (Auto) 6 % (10-50); Mean Corpuscular HGB Conc 33.3 g/dl (31.0-37.0); Mean Corpuscular Hemoglobin 28.5 pg (25.0-35.0); Mean Corpuscular Volume 86 fL (80-100); Monocytes # (Auto) 0.5 Thou/mm3 (0.0-0.8); Monocytes % (Auto) 2 % (0-12); Neutrophils # (Auto) 17.8 Thou/mm3 (1.8-7.7); Neutrophils % (Auto) 91 % (37-80); Nucleated Red Blood Cell % 0 /100 WBC (0); Platelet Count 233 Thou/mm3 (140-440); RDW Standard Deviation 46.4 fL (36.4-46.3); Red Blood Count 3.12 Miln/mm3 (4.00-5.20); White Blood Count 19.5 Thou/mm3 (3.6-11.0)
[2024-05-29 06:17] LABS: Hemoglobin 8.9 g/dL (12.0-16.0)
[2024-05-29 06:41] LABS: Alanine Aminotransferase 25 U/L (10-49); Albumin, Serum 3.3 gm/dL (3.5-5.0); Alkaline Phosphatase 88 U/L (46-116); Aspartate Amino Transferase 25 U/L (0-34); Bilirubin,Direct 0.1 mg/dL (0.0-0.3); Bilirubin,Total 0.3 mg/dL (0.3-1.2)
[2024-05-29] MEDS: PIPER/TAZO 3.375 GM 50 ML IV ×2 (06:51→13:56)
[2024-05-29 07:53] VITALS: PULSE 88; RESP 17; RESP 92
[2024-05-29 08:00] VITALS: BP 148/90; PULSE 84; RESP 17; TEMP 36.6; O2SAT 96
[2024-05-29] MEDS: ACETAMINOPHEN 325 MG TABLET 650 MG PO (08:57)
[2024-05-29] MEDS: SODIUM CHLORIDE 0.9% 1000 ML 1,000 ML 100 ML IV (08:58)
--- NOTE | 2024-05-29 10:13 | ESPR_ITS ---
Documentation for date of: 05/29/24 Subjective Subjective Brief History: History of present illness revealed the patient was in her usual health until last night when she developed a severe pain over the abdomen mostly in the upper abdomen then radiating elsewhere. She has had some vomiting and had couple of loose stools. She denies having any gallbladder stones in the past. She denies fever or chills. The pain was so severe that when she presented in the emergency room she was tachycardic with a heart rate around 150. Emergency room doctors resuscitated her with IV fluids but still she was tachycardic around 120s and has a lactic acid of around 4. Workup revealed acute calculus cholecystitis with considerable edema over the gallbladder wall and therefore surgical consultation was obtained. Patient denies having any such pain in the past. Her past surgery consist of 3 sections in [place]. Narrative: The patient appears to be stable tolerating regular diet. She does not have any diarrhea. She has no fever and her heart rate is down to 84. Exam Vital Signs Temp Pulse Resp BP Pulse Ox O2 Del Method O2 Flow Rate 97.8 F 84 17 148/90 H 96 Room Air 1 05/29/24 08:00 05/29/24 08:00 05/29/24 08:00 05/29/24 08:00 05/29/24 08:00 05/29/24 08:00 05/29/24 08:00 Her vital signs are normal Routine Abdominal Exam Comments: Abdominal examination shows no tenderness. The dressing was removed Results Results: Laboratory Laboratory Narrative: Patient's WBC still elevated around 19,300. Her hemoglobin is down a little bit probably because of hemodilution. Her liver enzymes are perfectly normal Assessment & Plan Assessment Additional comments: Impression: Patient seems to be getting better after a very severe acute cholecystitis. She still has a leukocytosis but I think we can discharge her on p.o. antibiotics Plan Plan: We will DC the IV and plan discharge this evening Procedures Procedures Laparoscopic cholecystectomy
[2024-05-29 12:00] VITALS: BP 139/85; PULSE 82; RESP 17; TEMP 36.6; O2SAT 98
[2024-05-29 16:00] VITALS: BP 157/98; PULSE 71; RESP 18; TEMP 36.5; O2SAT 100
== END 2024-05-29 19:52 | disposition home or self-care (01) | DRG 263 ==
LOC: SERX 13:57 → SERHOLD 17:56 → S3SX 21:40
PROVIDERS: Admitting Provider Surgery; Emergency Provider Emergency Medicine; PCP Specialist; Visit Provider Surgery
PROC: 0FT44ZZ Resection of Gallbladder, Percutaneous Endoscopic Approach (ICD-10-PCS; CPT 47562; principal; 2024-05-27 18:30)
DX: K80.00 Calculus of gallbladder with acute cholecystitis without obstruction (principal); E66.9 Obesity, unspecified; Z68.38 Body mass index [BMI] 38.0-38.9, adult; E87.20 Acidosis, unspecified; Z98.891 History of uterine scar from previous surgery; K66.0 Peritoneal adhesions (postprocedural) (postinfection)
CPT/HCPCS: 36415; 71045; 74177; 76705; 80051; 80053; 80076; 81001; 81025; 83605; 83690; 84145; 84484; 85025; 85610; 85730; 87040; A4217; A4649; J0131; J1100; J1885; J2250; J2270; J2371; J2543; J2704; J2710; J3010; J3490; J7030; Q9967; A9270; J1596; J1805

== ENCOUNTER → 2025-02-12 | Outpatient (CLI) | payer MEDICAID, SELFPAY ==
--- NOTE | 2025-02-12 16:15 | XR_ITS ---
Examination: MRI brain without intravenous contrast. Date and time of exam: February 12, 2025, 1808 hours INDICATIONS: Intractable headaches for years with facial numbness Technique: Multiple axial and sagittal images of the brain obtained. Siemens high-resolution 1.5 [place] short bore scanners utilized. Sagittal sections, T1-weighted, TR 500, TE 14, are performed. Axial sections proton-density and T2-weighted have been obtained. Inversion recovery axial images, TR 9, 260, TE 111, TI 2500. Diffusion weighted images, axial sections, TR 4800, TE 128, B value 1000 Axial sections, ADC map, TR 4800, TE 128 Findings: Enlargement of the sella turcica is not present. The optic chiasm and infundibular are not remarkable. Prepontine and interpeduncular cisterns are not enlarged. There is no localized enlargement of the medulla or coco. Fourth ventricle and cerebellar tonsils appear normal in position. No subacute area of hemorrhage density is seen. Mass in the cerebellopontine angle region is not evident. Globes symmetrical. Orbital musculature including medial lateral rectus muscles do not exhibit abnormality. Diffusion-weighted images demonstrate no focus of restricted diffusion. Increased white matter signal not seen Mass effect upon the ventricular system is not identified. Impression: Negative for acute hemorrhage, mass effect or midline shift No acute infarct No MR findings diagnostic for demyelinating disease
== END | disposition home or self-care (01) ==
LOC: SMRI 15:41
PROVIDERS: PCP Specialist; Referring Provider Specialist; Visit Provider Specialist
DX: G43.909 Migraine, unspecified, not intractable, without status migrainosus (principal)
CPT/HCPCS: 70551